=== PATIENT | male | born 1965 | race African-American/Black ===

== ENCOUNTER 2020-06-23 11:21 | Emergency (ER) | payer OTHER ==
[~2020-06-23] VITALS: Ht 182.9 cm; Wt 124.7 kg
[~2020-06-23 11:21] MED LIST: FLEXERIL PO; IBUPROFEN 800800 M1 PO; NOHOMEMEDICATIONS; NORCO 5-325 TA1 EACH PO; NORFLEX100 MG PO
[2020-06-23] MEDS ORDERED: ATORVASTATIN CA20 MG PO (11:48)
[2020-06-23] MEDS ORDERED: METOPROLOL SUCC50 MG PO (11:48)
[2020-06-23] MEDS ORDERED: XARELTO20 MG PO (11:48)
[2020-06-23] MEDS ORDERED: METFORMIN HCL500 MG PO (11:48)
[2020-06-23] MEDS ORDERED: COZAAR 25 MG TA25 M1 PO (11:48)
[2020-06-23] MEDS ORDERED: TIZANIDINE4 MG/1 TA1 PO ×2 (11:49→13:59)
[2020-06-23] MEDS ORDERED: MOBIC7.5 MG PO (13:59)
[2020-06-23 14:11] VITALS: BP 135/75
== END 2020-06-23 14:14 | disposition home or self-care (01) ==
LOC: ER 11:21
DX: S29.012A Strain of muscle and tendon of back wall of thorax, initial encounter (principal); E78.5 Hyperlipidemia, unspecified; I10 Essential (primary) hypertension; E11.9 Type 2 diabetes mellitus without complications; I48.91 Unspecified atrial fibrillation; X50.9XXA Other and unspecified overexertion or strenuous movements or postures, initial encounter; Y93.89 Activity, other specified; Y92.89 Other specified places as the place of occurrence of the external cause; Y99.8 Other external cause status

== ENCOUNTER → 2020-06-29 | Outpatient (CLI) | payer OTHER ==
[~2020-06-29] VITALS: Ht 182.9 cm; Wt 127.0 kg
[~2020-06-29] MED LIST changes: +ATORVASTATIN CA20 MG PO; +COZAAR 25 MG TA25 M1 PO; +METFORMIN HCL500 MG PO; +METOPROLOL SUCC50 MG PO; +MOBIC7.5 MG PO; +TIZANIDINE4 MG/1 TA1 PO; +XARELTO20 MG PO
--- NOTE | ~2020-06-29 | HPC ---
[facility] [place] [address] PAIN MANAGEMENT CONSULTATION Name: MAUREEN SEPULVEDA Room #: [facility] Michelle#: [id number] Admission: 06/29/20 Attend Phys: Ryan Hudson DO Discharge: Date of : 65 Report #: [id number] CC: Juan Calero DATE OF SERVICE: 06/29/2020 CHIEF COMPLAINT: Axial back pain. HISTORY OF PRESENT ILLNESS: As you know, the patient is a 55-year-old male who reports back pain that began on 06/06/2020. The patient has trialled no treatment options other than to utilize a nonsteroidal anti-inflammatory and a muscle relaxant in the form of tizanidine. The patient apparently sought evaluation through his [employer] where he was seen on 06/22/2020 and established an appointment with our clinic for concerns of chronic low back pain and possible sciatica. The patient denies injury or trauma that may have led to symptom development. He has had pain on and off for years. He is currently on Xarelto. The patient indicates today pain is continuous. He describes the pain as sharp, stabbing, and tender. He places current pain score at 4-8/10, daily average at 10/10, worst pain has been at 10/10. The patient states that sitting, moving, and walking exacerbate symptoms. Pain is improved with nothing to date. He has been referred to our service to discuss treatment options for axial back pain. PAST MEDICAL HISTORY: 1. Diabetes mellitus type 2. 2. Hypertension. 3. Degenerative joint disease. 4. Osteoarthritis. PAST SURGICAL HISTORY: None. SOCIAL HISTORY: The patient reports no tobacco use. Denies IV or illicit drug use. Denies any chronic alcohol use. 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 He is working, not receiving workmen's compensation nor is he trying to obtain disability benefits. He is not in litigation in regards to pain. REVIEW OF SYSTEMS: Positive for weight gain, shortness of breath, heart trouble, palpitations, shortness of breath with walking or lying flat, rectal bleeding and blood in stools, frequent urination, insomnia, diabetes, excessive thirst and urination, chronic low back pain. All other review of systems negative per 12-point review of systems other than those listed in history of present illness. Pain impact score 50 of 70, indicating severe interference of daily activities secondary to pain. ALLERGIES: No reported drug allergies. CURRENT MEDICATIONS: Meloxicam 7.5 mg once a day, tizanidine 4 mg t.i.d. p.r.n. muscle spasms, metoprolol 50 mg per day, metformin 500 mg twice a day, losartan 25 mg per day, atorvastatin 20 mg per day, Xarelto 20 mg per day. IMAGING: There is no imaging available. PHYSICAL EXAMINATION: VITAL SIGNS: Blood pressure 140/104, pulse 84, respiratory rate 16 and unlabored. The patient is 99% on room air, height 6 feet tall, weight 280 pounds, BMI calculated 38.0. GENERAL: Well-developed, well-nourished, well-hydrated 55-year-old male, appearing his stated age. He is in no acute distress, awake, alert, and oriented x 3. Pain is rated today at 4-8/10. HEENT: Normocephalic, atraumatic. Pupils equal, round, and reactive. Extraocular muscles are intact. Speech is fluent. The patient is having difficulty remaining awake during our evaluation, stating he has been up all night working. LUNGS: Appear clear. No wheeze, rhonchi, or rales. CARDIOVASCULAR: Regular. No appreciable gallop. No rub. ABDOMEN: Soft, obese, normoactive bowel sounds. EXTREMITIES: Show no clubbing, no cyanosis, no edema. MUSCULOSKELETAL: Lower extremity strength appears symmetrical 5/5. Muscle bulk and tone equal and symmetrical in comparing lower extremities. Seated straight leg raising negative. Supine straight leg raising negative. Garrett's test is negative. Modified Gaenslen's positive for some axial low back pain. Ankle clonus is negative. Babinski is negative. The patient is able to toe walk and heel walk without complications. ASSESSMENT: 1. Chronic low back pain. 2. Lumbosacral spondylosis without radicular symptoms. 3. Essential hypertension. PLAN: 1. Based on today's physical exam, history the patient has provided, the description the patient uses in regards to pain as well as location of symptoms, it would appear his symptoms are related to facet arthropathy of the lumbar spine. 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 The patient does not report any radiation of symptoms beyond the buttock area. The patient and I discussed his physical exam and we discussed what he has done to date to assist in pain control. After discussing the fact that he has only been on meloxicam for about 4 days and has discontinued his Xarelto as he was advised he cannot take the medication while on his blood thinner, we had a long discussion with the patient in regards to appropriate use of medications. We have advised the patient at this time to restart his Xarelto immediately. He is not to be off this medication without gaining clearance from the prescribing physician. This medication is critical for the patient to take if he has had DVTs or possible percutaneous stenting of the coronary arteries. We do not have a history of why the patient has the Xarelto and the patient cannot remember. We recommend he restart this medication immediately. As for the treatment for his axial back pain, the following was described as treatment options. We discussed physical therapy, stretching exercises, core strengthening, and concerted effort at weight loss. We discussed suggestions in medication management to the primary team in regards to treatment options. Unfortunately, the medications of choice (nonsteroidal anti-inflammatories) are precluded in this patient's case given his current use of Xarelto. Other treatment options could include neuropathic medications and the possible addition of a short dose of steroid medication or possibly even a short dose of opioid medications. We discussed injection therapy to address symptoms, for which, the patient was referred to our clinic. We also discussed surgical options with the patient, though given the lack of any imaging and any major findings on physical exam, I would not recommend surgical options at this time. After reviewing the risks and benefits of all the proposed treatment options, the patient requested to undergo lumbar epidural injection. 2. The patient was advised that third alliance party payer restrictions require authorization before the patient could undergo an epidural injection. I did advise the patient at this visit that there is a possibility that more conservative treatment options will be necessary before approvals will be made for an epidural injection. His limited findings on physical exam also may not meet their criteria for a lumbar epidural injection. The patient is currently off his Xarelto as he has discontinued the medication for the use of meloxicam. We will try to obtain an authorization today. If we are able to do so, we will perform the injection on the patient. Otherwise, we will begin the process of prior authorization and contact the patient if this is possible. 3. The patient's blood pressure is 140/104 today. He needs to follow up with his primary care physician immediately. I am very concerned about this patient being off his Xarelto and having an elevated blood pressure with diastolic pressure of 104. The patient needs to contact his primary care physician immediately and be seen in consultation for adjustments in medication management and further treatment. 4. I have advised the patient to restart his Xarelto until which time he can receive authorization to come off this medication in a controlled manner. He is not to discontinue this medication without prior authorization from the prescribing physician. I am hopeful the patient understands our concerns in regards to this medication. 5. We wish to thank Dr. Romero for the opportunity to see this patient in consultation. We will keep you apprised of his response to treatment as we address axial back pain. Again, we wish to thank you for the opportunity to see this patient in consultation. By: [id number] Ryan Hudson DO /nt
[2020-06-29 10:12] VITALS: BP 140/104
--- NOTE | 2020-06-29 10:28 | NUR ---
Pain Clinic Assessment: 1. History of Osteoarthritis: BACK History of Rheumatoid Arthritis: NONE 2. Height: 6 ft. 0 in. 182.9 cm. Weight: 280.0 lb. oz. 127.008 kg. Patient's BMI: 38.0 3. Vital Signs: BP: 140/104 Pulse: 84 Resp: 16 Temp: 02 Sat: 99 ECG Mon: 4. Pain Intensity: 4-8 5. Fall Risk: Dizziness: N Needs help standing or walking: N Fallen in the last 3 months: N Fall risk comments: 6. Patient on Blood Thinner: XARELTO 7. History of Hypertension: Y 8. Opioid Therapy greater than 6 weeks: N Opiate Contract Signed: 9. Risk Assessment Tool Provided: 0-LOW RISK 10. Functional Assessment Tool: 50/70 11. Recreational Drug Use: Never Drug Type: Tobacco Use: Never Smoker Tobacco Type: Amount or Packs/day: How Many Years: Alcohol Use: No Frequency: Quant:
== END ==
LOC: PAIN 08:59
PROVIDERS: ATTEND Anesthesiology Pain Medicine
DX: M47.26 Other spondylosis with radiculopathy, lumbar region (principal); M54.5 Low back pain; I10 Essential (primary) hypertension; E11.9 Type 2 diabetes mellitus without complications; M19.90 Unspecified osteoarthritis, unspecified site; Z79.899 Other long term (current) drug therapy

== ENCOUNTER → 2021-07-05 | Outpatient (CLI) | payer OTHER | LOC: SJCVCIMAG 14:04 | PROVIDERS: ATTEND Internal Medicine Cardiovascular Disease | DX: I34.0 Nonrheumatic mitral (valve) insufficiency (principal); I48.91 Unspecified atrial fibrillation; E11.9 Type 2 diabetes mellitus without complications; I10 Essential (primary) hypertension; G47.33 Obstructive sleep apnea (adult) (pediatric); Z79.84 Long term (current) use of oral hypoglycemic drugs; Z79.899 Other long term (current) drug therapy ==

== ENCOUNTER → 2021-07-05 | Outpatient (CLI) | payer OTHER ==
[~2021-07-05] MED LIST changes: +AMLODIPINE BESY10 MG PO; +BYSTOLIC10 MG PO; +BYSTOLIC20 MG PO; +CHLORTHALIDONE25 MG PO; +EDARBI80 MG PO; +MUPIROCIN22 GM NARES; +NITROSTAT0.4 M1 SUBLING; +NORCO 10-325 T1 EACH PO; +PROAIR HFA8.5 GM INH; +VIAGRA100 MG PO
== END ==
LOC: CAT
PROVIDERS: ATTEND Nuclear Medicine Nuclear Cardiology
DX: S25.00XA Unspecified injury of thoracic aorta, initial encounter (principal); X58.XXXD Exposure to other specified factors, subsequent encounter; Y93.89 Activity, other specified; Y92.89 Other specified places as the place of occurrence of the external cause; Y99.8 Other external cause status; I25.10 Atherosclerotic heart disease of native coronary artery without angina pectoris

== ENCOUNTER → 2021-07-13 | Outpatient (CLI) | payer OTHER ==
[2021-07-13 11:17] LABS: ABSOLUTE NEUTROPHILS 4.3 thou/uL (1.4-8.2); BASOPHILS 0.4 % (0.0-2.0); EOSINOPHILS 0.9 % (0.0-3.0); HEMATOCRIT 39.3 % (42.0-52.0); HEMOGLOBIN 12.8 gm/dL (14.0-18.0); LYMPHOCYTES 20.6 % (24.0-44.0); MCHC 32.5 g/dL (28.0-37.0); MCV 83.2 fL (80.0-100.0); MONOCYTES 6.4 % (1.0-8.0); PLATELET COUNT 148 thou/uL (150-400); POLYS 71.7 % (36.0-66.0); RBC 4.72 mil/uL (4.50-6.00)
[2021-07-13 11:28] LABS: APTT 30.2 Seconds (24.5-32.8); INR 1.08; PROTIME 11.7 Seconds (10.5-12.1)
[2021-07-13 11:43] LABS: ALBUMIN 3.7 g/dL (3.4-5.0); CALCIUM 8.8 mg/dL (8.5-10.1); CREATININE 0.9 mg/dL (0.7-1.3); POTASSIUM 3.7 mmol/L (3.5-5.1); TOTAL BILIRUBIN 0.3 mg/dL (0.2-1.0); TOTAL PROTEIN 7.6 g/dL (6.4-8.2)
[2021-07-13 12:25] LABS: URINE BILIRUBIN NEGATIVE (Negative); URINE BLOOD NEGATIVE (Negative); URINE CLARITY CLEAR; URINE COLOR YELLOW; URINE GLUCOSE-RANDOM* NEGATIVE (Negative); URINE KETONES NEGATIVE (Negative); URINE LEUKOCYTES-REFLEX NEGATIVE (Negative); URINE NITRITE-REFLEX NEGATIVE (Negative); URINE PROTEIN (DIPSTICK) NEGATIVE (Negative); URINE SPECIFIC GRAVITY >= 1.030 (1.005-1.035); URINE UROBILINOGEN 0.2 E.U./dl (0.2-1.0)
== END ==
LOC: PAC 10:18
PROVIDERS: ATTEND Surgery Vascular Surgery
DX: Z01.812 Encounter for preprocedural laboratory examination (principal); Z20.822 Contact with and (suspected) exposure to COVID-19

== ENCOUNTER 2021-07-15 07:43 | Inpatient (IN) | payer OTHER ==
[~2021-07-15] VITALS: Ht 175.3 cm; Wt 126.1 kg
[~2021-07-15 07:43] MED LIST changes: -BYSTOLIC10 MG PO
[2021-07-15 12:27] VITALS: BP 142/85
--- NOTE | 2021-07-15 18:07 | NUR ---
PATIENT STATES ABSOLUTLELY WILL NOT RECEIVE INSULIN SHOT, WHEN GIVEN EDUCATION PATIENT GETS UPSET AND STATES NO, ELEVATION IN BLOOD PRESSURE NOTED, RN TOLD PATIENT TO RELAX AND FOCUS ON HEALING WILL WRITE IN NOTES THAT PATIENT ABSOLUTELY REJECTS INSULIN
--- NOTE | 2021-07-15 21:00 | NUR ---
recieved report and assumed care. Pt very talkative and states this Hospital is much better than the one in [place]. Stated the ICU nurses nnever came in to take care of him and he got bed sores. States the nurses here are very nice and seem to care about there patients. Assessment completed. Pt remains on Cardene. will cont to monitor.
--- NOTE | 2021-07-16 00:15 | NUR ---
ASSUMED PATIENT CARE AT APPROXIMATELY 2300.
--- NOTE | 2021-07-16 03:07 | NUR ---
CARE ASSUMED AT 0300. NO CHANGES IN PT STATUS AT THIS TIME
[2021-07-16 05:21] LABS: HEMATOCRIT 36.1 % (42.0-52.0); HEMOGLOBIN 11.6 gm/dL (14.0-18.0); MCH 26.8 pg (26.0-34.0); MCHC 32.2 g/dL (28.0-37.0); MCV 83.1 fL (80.0-100.0); RBC 4.35 mil/uL (4.50-6.00); RDW 17.6 % (10.5-14.5); WBC 10.3 thou/uL (4.0-11.0)
[2021-07-16 05:37] LABS: CALCIUM 8.3 mg/dL (8.5-10.1); CREATININE 1.1 mg/dL (0.7-1.3); POTASSIUM 3.6 mmol/L (3.5-5.1)
[2021-07-16 09:41] VITALS: BP 122/66
[2021-07-16] MEDS ORDERED: BYSTOLIC10 MG PO ×2 (09:47)
[2021-07-16] MEDS ORDERED: EDARBI80 MG PO ×2 (09:47)
--- NOTE | 2021-07-16 10:32 | NUR ---
PT ALERT AND ORIENTED TIMES FOUR. VSS, IVF INFUSING PER ORDER. ART LINE AND RAMOS BOTH REMOVED THIS MORNING. PT TOLERATES MEDS AND MEALS. RIGHT GROIN SITE C/D/I. PT DENIES PAIN/SOA, AND IS UP SITTING IN THE CHAIR. POSSIBLE PLANS TO DISCHARGE TODAY.
[2021-07-16 10:42] VITALS: BP 112/58
[2021-07-16 11:42] VITALS: BP 103/64
[2021-07-16 12:42] VITALS: BP 132/74
[2021-07-16 13:21] VITALS: BP 03/64
[2021-07-16 13:42] VITALS: BP 130/70
== END 2021-07-16 14:49 | disposition home or self-care (01) | DRG 909 ==
LOC: PRE → ADMC 07:43 → PRE 10:21 → TBA 10:51 → PRE 11:29 → ICU 17:03
PROVIDERS: Physician Assistant; ADMIT Surgery Vascular Surgery; ATTEND Surgery Vascular Surgery
PROC: B312YZZ Fluoroscopy of Left Subclavian Artery using Other Contrast (ICD-10-PCS; principal; 2021-07-15)
PROC: 02VX3DZ Restriction of Thoracic Aorta, Ascending/Arch with Intraluminal Device, Percutaneous Approach (ICD-10-PCS; principal; 2021-07-15)
PROC: B310YZZ Fluoroscopy of Thoracic Aorta using Other Contrast (ICD-10-PCS; principal; 2021-07-15)
DX: S25.01XA Minor laceration of thoracic aorta, initial encounter (principal); I48.91 Unspecified atrial fibrillation; E11.9 Type 2 diabetes mellitus without complications; E78.00 Pure hypercholesterolemia, unspecified; E78.5 Hyperlipidemia, unspecified; X58.XXXA Exposure to other specified factors, initial encounter; I10 Essential (primary) hypertension; G47.33 Obstructive sleep apnea (adult) (pediatric); Z79.84 Long term (current) use of oral hypoglycemic drugs; Z79.899 Other long term (current) drug therapy; Z79.01 Long term (current) use of anticoagulants; Z80.9 Family history of malignant neoplasm, unspecified; Y93.89 Activity, other specified; Y92.89 Other specified places as the place of occurrence of the external cause; Y99.8 Other external cause status
CPT/HCPCS: 10078; 47375; 50010; 50101; 50386; 50455; 52287; 54118; 56524; 56526; 56531; 56668; 56760; 57093; 62110; 62900; 65020; 65130; 70005

== ENCOUNTER 2021-08-01 18:40 | Emergency (ER) | payer OTHER ==
[~2021-08-01] VITALS: Ht 180.3 cm; Wt 118.8 kg
[~2021-08-01 18:40] MED LIST changes: +BYSTOLIC10 MG PO
[2021-08-01 20:49] VITALS: BP 138/90
--- NOTE | 2021-08-02 08:00 | EKG ---
[address] [address] ELECTROCARDIOGRAM REPORT Name: MAUREEN SEPULVEDA Room #: [facility]#: [id number] Admission: 08/01/21 Attend Phys: Discharge: 08/01/21 Date of : 65 Report #: [id number] [facility] ED Test Date: 2021-08-01 Test Time: 18:46:00 Pat Name: MAUREEN MENENDEZKINS Department: Room: Gender: M Logistics Clerk: REINA : 1965 Requested By: Spring Smalls Order Number: [id number] MD: Smith Rouse Measurements Intervals [place] Rate: 70 P: [place]: QRS: 5 QRSD: 83 T: -14 QT: 367 QTc: 396 Interpretive Statements Atrial fibrillation Borderline T abnormalities, inferior leads Baseline wander in lead(s) I,II,aVR Compared to ECG 07/24/2007 07:38:03 T-wave abnormality now present Sinus rhythm no longer present Possible ischemia no longer present Electronically Signed On 08-02-2021 8:00:42 DEHYDRATOR OPERATOR by Smith Rouse [email or web address] <ELECTRONICALLY SIGNED> By: Smith Rouse MD, FAC 08/02/21 0800 [id number] 45 Smith Rouse MD, [facility] /EPI
== END 2021-08-01 20:49 | disposition home or self-care (01) ==
LOC: ER 18:40
DX: R04.0 Epistaxis (principal); E78.00 Pure hypercholesterolemia, unspecified; I10 Essential (primary) hypertension; E11.9 Type 2 diabetes mellitus without complications; I48.91 Unspecified atrial fibrillation; I71.4 Abdominal aortic aneurysm, without rupture; Z98.890 Other specified postprocedural states; Z79.84 Long term (current) use of oral hypoglycemic drugs; Z79.51 Long term (current) use of inhaled steroids; Z79.1 Long term (current) use of non-steroidal anti-inflammatories (NSAID); Z79.891 Long term (current) use of opiate analgesic; Z79.899 Other long term (current) drug therapy

== ENCOUNTER → 2021-09-05 | Outpatient (CLI) | payer OTHER ==
[2021-09-05 11:51] LABS: CREATININE 1.1 mg/dL (0.7-1.3)
== END ==
LOC: CAT 08-30 09:32
PROVIDERS: ATTEND Nuclear Medicine Nuclear Cardiology
DX: S25.09XA Other specified injury of thoracic aorta, initial encounter (principal); Z95.828 Presence of other vascular implants and grafts; I25.10 Atherosclerotic heart disease of native coronary artery without angina pectoris; X58.XXXA Exposure to other specified factors, initial encounter; Y92.89 Other specified places as the place of occurrence of the external cause; Y93.89 Activity, other specified; Y99.8 Other external cause status

== ENCOUNTER 2021-09-07 20:40 | Emergency (ER) | payer OTHER ==
[~2021-09-07] VITALS: Ht 177.8 cm; Wt 127.7 kg
[2021-09-07 22:13] LABS: ABSOLUTE NEUTROPHILS 5.7 thou/uL (1.4-8.2); EOSINOPHILS 0.6 % (0.0-3.0); HEMATOCRIT 38.3 % (42.0-52.0); HEMOGLOBIN 12.4 gm/dL (14.0-18.0); LYMPHOCYTES 18.8 % (24.0-44.0); MCH 26.5 pg (26.0-34.0); MCHC 32.4 g/dL (28.0-37.0); MCV 81.8 fL (80.0-100.0); MONOCYTES 7.6 % (1.0-8.0); PLATELET COUNT 178 thou/uL (150-400); RBC 4.69 mil/uL (4.50-6.00); RDW 17.6 % (10.5-14.5); WBC 8.5 thou/uL (4.0-11.0)
[2021-09-07 22:22] LABS: CALCIUM 8.6 mg/dL (8.5-10.1); CREATININE 0.9 mg/dL (0.7-1.3); POTASSIUM 3.4 mmol/L (3.5-5.1)
[2021-09-07 22:37] LABS: ALBUMIN 3.2 g/dL (3.4-5.0); TOTAL BILIRUBIN 0.3 mg/dL (0.2-1.0); TOTAL PROTEIN 7.5 g/dL (6.4-8.2)
[2021-09-08 00:03] VITALS: BP 169/109
--- NOTE | 2021-09-08 07:47 | EKG ---
[address] [address] ELECTROCARDIOGRAM REPORT Name: MAUREEN SEPULVEDA Room #: [facility]#: [id number] Admission: 09/07/21 Attend Phys: Discharge: 09/08/21 Date of : 65 Report #: [id number] [facility] ED Test Date: 2021-09-07 Test Time: 20:55:51 Pat Name: MAUREEN SEPULVEDA Department: Room: Gender: M Copy Center Operator: nancy : 1965 Requested By: Kayla Park Order Number: [id number] MD: Smith Rouse Measurements Intervals [place] Rate: 81 P: [place]: QRS: -10 QRSD: 77 T: -16 QT: 357 QTc: 415 Interpretive Statements Atrial fibrillation Inferior infarct, age indeterminate Baseline wander in lead(s) I,II,aVR Compared to ECG 08/01/2021 18:46:00 Myocardial infarct finding now present T-wave abnormality no longer present Electronically Signed On 09-08-2021 7:47:05 A&P MECHANIC by Smith Rouse [email or web address] <ELECTRONICALLY SIGNED> By: Smith Rouse MD, [facility] 09/08/21 0747 [id number] Smith Rouse MD, FAC /EPI
== END 2021-09-08 00:47 | disposition home or self-care (01) ==
LOC: ER 20:40
PROVIDERS: Emergency Medicine
DX: R07.89 Other chest pain (principal); E78.00 Pure hypercholesterolemia, unspecified; E11.9 Type 2 diabetes mellitus without complications; I48.91 Unspecified atrial fibrillation; E78.5 Hyperlipidemia, unspecified; I25.10 Atherosclerotic heart disease of native coronary artery without angina pectoris; Z98.890 Other specified postprocedural states; Z79.84 Long term (current) use of oral hypoglycemic drugs; Z79.51 Long term (current) use of inhaled steroids; Z79.899 Other long term (current) drug therapy